=== PATIENT | female | born 1980 | race Caucasian/White ===

== ENCOUNTER 2017-12-06 16:01 | Emergency (ER) | payer OTHER ==
[~2017-12-06] VITALS: Ht 172.7 cm; Wt 81.2 kg
--- OUTSIDE RECORDS SUMMARY | ~2017-12-06 | XMS | Clinical Summary ---
Demographics + + + | Address | [address] | | | [place] [address] | + + + | Home Phone | | + + + | Preferred Language | Unknown | + + + | Marital Status | | + + + | Spiritism Affiliation | 1013 | + + + | Race | Unknown | + + + | Ethnic Group | Unknown | + + + Author + + + | Author | [facility] | + + + | Organization | [facility] | + + + | Address | Unknown | + + + | Phone | Unavailable | + + + Support + + +---------+ + | Name | Relationship | Address | Phone | + + +---------+ + | Negro Hunter | ECON | Unknown | | + + +---------+ + Care Team Providers + +------+ + | Care Outpatient Case Manager Name | Role | Phone | + +------+ + | Jhon Valencia MD | PP | | + +------+ + Allergies + + + + + + | Active Allergy | Reactions | Severity | Noted | Comments | | | | | Date | | + + + + + + | Sulfamethoxazole-Tri | Hives | High | 08/17/19 | | | methoprim | | | 16 | | + + + + + + | Hydrocodone | Itching | Medium | 10/06/19 | | | | | | 16 | | + + + + + + | Minocycline | Hives | High | 08/17/19 | | | | | | 16 | | + + + + + + | Penicillins | Hives | High | 08/17/19 | | | | | | 16 | | + + + + + + Current Medications + + +--------+---------+------+------+-------+ | Prescription | Sig. | Disp. | Refills | Star | End | Statu | | | | | | t | Date | s | | | | | | Date | | | + + +--------+---------+------+------+-------+ | cetirizine | Take 10 mg by mouth | | | | | Activ | | (ZYRTEC) 10 MG | daily. | | | | | e | | tablet | | | | | | | + + +--------+---------+------+------+-------+ | UNABLE TO FIND | Allergy shot--weekly | | | | | Activ | | | | | | | | e | + + +--------+---------+------+------+-------+ | | Take 1-2 tablets by | 45 | 0 | 03/0 | | Activ | | HYDROcodone-acetamin | mouth every 6 (six) | tablet | | 1/20 | | e | | ophen (NORCO) 5-325 | hours as needed for | | | 16 | | | | MG per tablet | Pain. 1 to 2 tablets | | | | | | | | every 6 hours as | | | | | | | | needed for pain | | | | | | + + +--------+---------+------+------+-------+ | | Take 1 tablet by | | | | | Activ | | oxyCODONE-acetaminop | mouth every 12 | | | | | e | | hen (PERCOCET) 5-325 | (twelve) hours as | | | | | | | MG per tablet | needed for Pain. | | | | | | + + +--------+---------+------+------+-------+ Active Problems No known active problems Resolved Problems + + + + | Problem | Noted | Resolved | | | Date | Date | + + + + | Frontal skull lesion | 08/17/19 | | | | 16 | 6 | + + + + Family History + + +------+ + | Medical History | Relation | Name | Comments | + + +------+ + | Cancer | Paternal | | | | | Grandfath | | | | | er | | | + + +------+ + + +------+--------+ + | Relation | Name | Status | Comments | + +------+--------+ + | Father | | Alive | | + +------+--------+ + | Mother | | Alive | | + +------+--------+ + | Paternal Grandfather | | | | + +------+--------+ + Social History + +-------+ +--------+ + | Tobacco Use | Types | Packs/Day | Years | Date | | | | | Used | | + +-------+ +--------+ + | Former Smoker | | 0.25 | 3 | Quit: 09/23/1999 | + +-------+ +--------+ + + +---+---+ + | Smokeless Tobacco: | | | Quit: | | Former User | | | 09/23/19 | | | | | 00 | + +---+---+ + + + +---------+ + | Alcohol Use | Drinks/We | oz/Week | Comments | | | ek | | | + + +---------+ + | No | | | | + + +---------+ + + + + | Sex Assigned at | Date Recorded | | | | + + + | Not on file | | + + + Last Filed Vital Signs + + + + | Vital Sign | Reading | Time Taken | + + + + | Blood Pressure | 113/68 | 10/06/2015 5:36 PM PST | + + + + | Pulse | 86 | 10/06/2015 5:36 PM PST | + + + + | Temperature | 36.2 C (97.2 F) | 10/06/2015 4:45 PM PST | + + + + | Respiratory Rate | 16 | 10/06/2015 5:36 PM PST | + + + + | Oxygen Saturation | 97% | 10/06/2015 5:36 PM PST | + + + + | Inhaled Oxygen | - | - | | Concentration | | | + + + + | Weight | 85.2 kg (187 lb 13.3 | 10/06/2015 12:53 PM PST | | | oz) | | + + + + | Height | 172.7 cm (5' 8") | 10/06/2015 12:53 PM PST | + + + + | Body Mass Index | 28.56 | 10/06/2015 12:53 PM PST | + + + + Plan of Treatment + + + + + | Health Maintenance | Due Date | Last Done | Comments | + + + + + | Vaccine: | | | | | Dtap/Tdap/Td (1 - | 7 | | | | Tdap) | | | | + + + + + | Cervical Cancer | | | | | Screening (Pap) | 9 | | | + + + + + | Vaccine: Influenza | | | | | (Season Ended) | 8 | | | + + + + + Implants + +------+------+ +--------+--------+--------+ | Implanted | Type | Area | Manufacture | Device | Expira | Model | | | | | r | | tion | / | | | | | | Identi | Date | Serial | | | | | | fier | | / Lot | + +------+------+ +--------+--------+--------+ | Plate Dogbone 8mm - | | | [employer] - | | | [id number] | | SnaImplanted: Qty: 1 on | | | MEDT | | | 2 / | | 10/06/2015 by Leni June | | | | | | /[id number] | | MD Mikhail | | | | | | 33 | + +------+------+ +--------+--------+--------+ | Screw S/Tap 1.6x4.0 - | | | [employer] - | | | [id number] | | SnaImplanted: Qty: 1 on | | | MEDT | | | 0 / / | | 10/06/2015 by Leni June | | | | | | | | L, MD | | | | | | | + +------+------+ +--------+--------+--------+ | Kit Cranioplasty Resin Repair | | | [employer] | | 05/07/ | [id number] | | - SnaImplanted: Qty: 1 on | | | CODMAN - | | 2017 | 0 / | | 10/06/2015 by Leni June | | | CODM | | | /[id number] | | L, MD | | | | | | 68 | + +------+------+ +--------+--------+--------+ Results Not on filefrom Last 3 Months Insurance + +--------+ +------+-------+---------+ | Payer | Benefi | Subscriber | Type | Phone | Address | | | t Plan | ID | | | | | | / | | | | | | | Group | | | | | + +--------+ +------+-------+---------+ | [employer] | FC-NET | xxxxxxxxxxx | | | | | | WORK | | | | | + +--------+ +------+-------+---------+ | [employer] | FC-NET | [id number] | | | | | | WORK | | | | | + +--------+ +------+-------+---------+ + +--------+ +--------+ + + | Guarantor Name | Accoun | Relation to | Date | Phone | Billing Address | | | t Type | Patient | of | | | | | | | | | | + +--------+ +--------+ + + | GUILHERME TOM | Person | Self | [birth year] | Work: | [address] | | | al/Fam | | 1979 | [phone] | [place] | | | jo ann | | | [phone]: | [phone] | | | | | | | | | | | | | [phone] | | | | | | | [phone] | | + +--------+ +--------+ + +
--- OUTSIDE RECORDS SUMMARY | ~2017-12-06 | XMS | Clinical Summary ---
Demographics + + + | Address | [address] | | | [place] [address] | + + + | Home Phone | | + + + | Preferred Language | Unknown | + + + | Marital Status | | + + + | Hoahaoism Affiliation | 1013 | + + + | Race | Unknown | + + + | Ethnic Group | Unknown | + + + Author + + + | Author | [facility] | + + + | Organization | [facility] | + + + | Address | Unknown | + + + | Phone | Unavailable | + + + Support + + +---------+ + | Name | Relationship | Address | Phone | + + +---------+ + | Negro Hunter | ECON | Unknown | | + + +---------+ + Care Team Providers + +------+ + | Care Grocery Shopper Name | Role | Phone | + [...] | | [employer] - | | | [phone] | | SnaImplanted: Qty: 1 on | [...] | | | CODM | | | /[id number] | | L, MD | | | [...] | | al/Fam | | 1979 | [phone] | [place] | | | jo ann | | | [phone]: | [phone] | | | | | | | | | | | | | [phone] | | | | | | | [phone] | | + +--------+ +--------+ + +
--- OUTSIDE RECORDS SUMMARY | ~2017-12-06 | XMS | Clinical Summary ---
Demographics + + + | Address | [address] | | | [place] [address] | + + + | Home Phone | | + + + | Preferred Language | Unknown | + + + | Marital Status | | + + + | Faith Affiliation | Unknown | + + + | Race | Unknown | + + + | Ethnic Group | Unknown | + + + Author + + + | Author | [facility] | | | and [place] | + + + | Organization | [facility] | | | and [place] | + + + | Address | Unknown | + + + | Phone | Unavailable | + + + Care Team Providers + +------+ + | Care Digital Content Marketing Manager Name | Role | Phone | + +------+ + PP | Unavailable | + +------+ + Allergies + + + +--------+ + | Active Allergy | Reactions | Severity | Noted | Comments | | | | | Date | | + + + +--------+ + | Minocycline Hcl | | | | | + + + +--------+ + | Penicillin V | | | | | | Potassium | | | | | + + + +--------+ + | Sulfamethoxazole | | | | | | W/Trimethoprim | | | | | | (Co-Trimoxazole) | | | | | + + + +--------+ + Current Medications + + +-------+---------+------+------+-------+ | Prescription | Sig. | Disp. | Refills | Star | End | Statu | | | | | | t | Date | s | | | | | | Date | | | + + +-------+---------+------+------+-------+ | gabapentin | TAKE ONE CAPS 3 | | | 09/0 | | Activ | | (NEURONTIN) 300 mg | TIMES DAILY | | | 2/20 | | e | | capsule | TOLERATED. | | | 11 | | | + + +-------+---------+------+------+-------+ | IBUPROFEN PO | TABS as needed | | | 09 | | Activ | | | | | | 4/20 | | e | | | | | | 12 | | | + + +-------+---------+------+------+-------+ | Naproxen (NAPROSYN | TABS | | | 09/1 | | Activ | | PO) | | | | 4/20 | | e | | | | | | 12 | | | + + +-------+---------+------+------+-------+ | meloxicam (MOBIC) | | | | 09/ | | Activ | | 15 mg tablet | | | | 420 | | e | | | | | | 12 | | | + + +-------+---------+------+------+-------+ | | | | | 09/1 | | Activ | | oxyCODONE-acetaminop | | | | 4/20 | | e | | hen (PERCOCET) 5-325 | | | | 12 | | | | mg per tablet | | | | | | | + + +-------+---------+------+------+-------+ Active Problems + + + | Problem | Noted Date | + + + | LOW BACK PAIN, CHRONIC | | + + + | HERNIATED LUMBAR DISC | | + + + | THORACIC/LUMBOSACRAL NEURITIS/RADICULITIS UNSPEC | | + + + Social History + +-------+ +--------+------+ | Tobacco Use | Types | Packs/Day | Years | Date | | | | | Used | | + +-------+ +--------+------+ | Never Assessed | | | | | + +-------+ +--------+------+ + + + | Sex Assigned at | Date Recorded | | | | + + + | Not on file | | + + + Last Filed Vital Signs + + + + | Vital Sign | Reading | Time Taken | + + + + | Blood Pressure | 108/70 | 09/15/2010 0000 PST | + + + + | Pulse | - | - | + + + + | Temperature | - | - | + + + + | Respiratory Rate | - | - | + + + + | Oxygen Saturation | - | - | + + + + | Inhaled Oxygen | - | - | | Concentration | | | + + + + | Weight | 68 kg (150 lb) | 11/23/2010 0000 PDT | + + + + | Height | 172.7 cm (5' 8") | 09/15/2010 0000 PST | + + + + | Body Mass Index | 22.81 | 11/23/2010 PDT | + + + + Plan of Treatment + + + + + | Health Maintenance | Due Date | Last Done | Comments | + + + + + | Vaccine: | | | | | Dtap/Tdap/Td (1 - | 7 | | | | Tdap) | | | | + + + + + | CERVICAL CANCER | | | | | SCREENING (PAP EVERY | 9 | | | | 3 YEARS 21-64 ) | | | | + + + + + | Vaccine: Influenza | | | | | (Season Ended) | 8 | | | + + + + + Results Not on filefrom Last 3 Months
--- OUTSIDE RECORDS SUMMARY | ~2017-12-06 | XMS | Clinical Summary ---
Demographics + + + | Address | [address] | | | [place] [address] | + + + | Home Phone | | + + + | Preferred Language | Unknown | + + + | Marital Status | | + + + | Protestant Affiliation | Unknown | + + + | Race | Unknown | + + + | Ethnic Group | Unknown | + + + Author + + + | Author | [facility] | | | and [place] | + + + | Organization | [facility] | | | and [place] | + + + | Address | Unknown | + + + | Phone | Unavailable | + + + Care Team Providers + +------+ + | Care Shell Fisherman Name | Role | Phone | + [...]
== END 2017-12-06 17:17 | disposition home or self-care (01) ==
LOC: ED 16:01
DX: S83.91XA Sprain of unspecified site of right knee, initial encounter (principal); Z88.0 Allergy status to penicillin; Z88.2 Allergy status to sulfonamides; Z88.1 Allergy status to other antibiotic agents; W19.XXXA Unspecified fall, initial encounter
CPT/HCPCS: 73560; 99283

== ENCOUNTER 2022-09-05 19:01 | Emergency (ER) | payer OTHER ==
[~2022-09-05] VITALS: Ht 172.7 cm; Wt 96.2 kg
[2022-09-05] MEDS ORDERED: PERCOCET 5-3251 EACH PO (23:42)
== END 2022-09-06 | disposition home or self-care (01) ==
LOC: ED 19:01
DX: M25.562 Pain in left knee (principal); Z87.891 Personal history of nicotine dependence; Z88.0 Allergy status to penicillin; Z88.2 Allergy status to sulfonamides; Z88.8 Allergy status to other drugs, medicaments and biological substances; X50.1XXA Overexertion from prolonged static or awkward postures, initial encounter
CPT/HCPCS: 73560; 96374; 99283-25; J1885